=== PATIENT | female | born 1990 | race Caucasian/White ===

== ENCOUNTER 2018-07-29 16:08 | Emergency (ER) | payer MEDICAID ==
[~2018-07-29 16:08] MED LIST: ALBU8HFA PO; HYDR-3686 PO; LISI-600 PO; NORG1TAB PO; QUET25TA PO; SERT100T10 PO
--- NOTE | 2018-07-29 17:23 | NUR ---
NIL X 3
== END 2018-07-29 17:32 | disposition left against medical advice (07) ==
LOC: ER 16:09
DX: H92.09 Otalgia, unspecified ear (principal); Z53.21 Procedure and treatment not carried out due to patient leaving prior to being seen by health care provider